=== PATIENT | female | born 1975 | race Caucasian/White ===

== ENCOUNTER 2019-05-09 19:58 | Emergency (ER) | payer OTHER ==
[~2019-05-09] VITALS: Ht 160 cm; Wt 69.6 kg
[2019-05-09] MEDS ORDERED: KEFLEX500 M1 PO (22:08)
[2019-05-09 22:18] VITALS: BP 118/49
== END 2019-05-09 22:19 | disposition home or self-care (01) ==
LOC: M.ERS 19:58
DX: S81.011A Laceration without foreign body, right knee, initial encounter (principal); W22.8XXA Striking against or struck by other objects, initial encounter; Y93.89 Activity, other specified; Y92.89 Other specified places as the place of occurrence of the external cause; Y99.8 Other external cause status